=== PATIENT | male | born 1960 | race African-American/Black ===

== ENCOUNTER 2025-07-07 17:08 | Outpatient (CLI) | payer MEDICARE, MEDICAID, SELFPAY ==
[2025-07-07 17:08] LABS: Coronavirus 19, PCR Not Detected (NotDetected); Influenza A, PCR Not Detected (NotDetected); Influenza B, PCR Not Detected (NotDetected)
== END 2025-07-07 23:59 | disposition home or self-care (01) ==
LOC: LAB.DROPOF 17:08
PROVIDERS: Visit Provider Student in an Organized Health Care Education/Training Program
DX: R50.9 Fever, unspecified (principal)
CPT/HCPCS: 87636

== ENCOUNTER 2025-08-05 07:23 | Emergency (ER) | payer MEDICAID, SELFPAY ==
[2025-08-05 07:28] VITALS: BP 152/91; PULSE 68; RESP 18; TEMP 36.6; O2SAT 97; BMI 29.2
--- NOTE | 2025-08-05 07:29 | HMH.EDGENADL ---
Discharge Plan Disposition Patient Disposition: Home, Self-Care Condition: Good Prescriptions Prescriptions: No Action ibuprofen 800 mg tablet PO citalopram 20 mg tablet PO amlodipine 10 mg tablet PO gemfibrozil 600 mg tablet PO omeprazole 20 mg capsule,delayed release(DR/EC) PO ergocalciferol (vitamin D2) 1,250 mcg (50,000 unit) capsule 1,250 mcg PO epinephrine 0.3 mg/0.3 mL auto-injector 0.3 mg IM diazepam 5 mg tablet PO cyclobenzaprine 5 mg tablet PO levocetirizine 5 mg tablet PO naloxone 4 mg/actuation spray,non-aerosol intranasal benzonatate 100 mg capsule 100 mg PO BID PRN (Reason: cough) Qty: 30 0RF ondansetron 4 mg tablet,disintegrating 4 mg PO Q8H PRN (Reason: nausea and vomiting) Qty: 10 0RF Referrals Follow up/Referrals: Provider,Referral, MD [Referring, Medical] - See instructions Activity Restrictions/Add. Instructions Additional Instructions/Restrictions: Please follow up with your primary care provider in 2-3 days. Return if you have numbness weakness tingling worsening pain despite medicines at home. Please return to ED if your symptoms worsen, change in location, change in severity, new symptoms develop or if you become concerned for your health. Clinical Impressions Clinical Impression: Fall, Acute exacerbation of chronic low back pain, CHI (closed head injury) Print Language Print Language: Czech Discharge ED Provider: Jenaro Callejas Adult HPI General Chief complaint: Fall Stated complaint: Fall Time Seen by Provider: 08/05/25 07:29 History of Present Illness HPI narrative: Patient is a 64-year-old male with history of hypertension, chronic back pain. He presents today due to concerns after a fall. It sounds like a mechanical fall. He reports that he tripped in a pothole in his driveway and fell backwards striking the back of his head. He reports possible loss of consciousness. Denies any blood thinners. He was able to get up and ambulate afterwards. However he reports pain mildly in the posterior aspect of his head as well as his neck and lumbar spine. He has not taken any medicines at home for the pain. He reports that his back pain is chronic and he has chronic numbness in his right lower extremity. Denies any saddle anesthesia or urinary incontinence. Denies any other numbness tingling or weakness. Denies any chest pain shortness of breath abdominal pain vomiting or diarrhea. Denies any vision changes Related Data Home Medications ?Medication ?Instructions ?Recorded ?Confirmed amlodipine 10 mg tablet mg PO 07/07/25 07/07/25 citalopram 20 mg tablet mg PO 07/07/25 07/07/25 cyclobenzaprine 5 mg tablet mg PO 07/07/25 07/07/25 diazepam 5 mg tablet mg PO 07/07/25 07/07/25 epinephrine 0.3 mg/0.3 mL 0.3 mg IM 07/07/25 07/07/25 injection, auto-injector ergocalciferol (vitamin D2) 1,250 1,250 mcg PO 07/07/25 07/07/25 mcg (50,000 unit) capsule gemfibrozil 600 mg tablet mg PO 07/07/25 07/07/25 ibuprofen 800 mg tablet mg PO 07/07/25 07/07/25 levocetirizine 5 mg tablet mg PO 07/07/25 07/07/25 naloxone 4 mg/actuation nasal spray intranasal 07/07/25 07/07/25 omeprazole 20 mg capsule,delayed mg PO 07/07/25 07/07/25 release Previous Rx's ?Medication ?Instructions ?Recorded benzonatate 100 mg capsule 100 mg PO BID PRN cough #30 caps 07/07/25 ondansetron 4 mg disintegrating 4 mg PO Q8H PRN nausea and 07/07/25 tablet vomiting #10 tabs Allergies Allergy/AdvReac Type Severity Reaction Status Date / Time aspirin Allergy Unknown Rash Verified 07/07/25 09:01 asprin Allergy Mild Rash Uncoded 07/07/25 08:50 [facility] Disclaimer: The information contained in this section may have been updated after the patient was seen, as this information can be updated by other users. Social History (Updated 07/07/25 @ 08:53 by JOANN Pichardo) Smoking Status: Current every day smoker alcohol intake: never current occupational status: retired Travel in the last 8 weeks?: None Have you lived/traveled outside US in past 30 days?: No Contact w/someone who lives/traveled outside US past 30 days?: No Exposure to someone with infectious disease in past 14 days?: No Do you have a fever (greater than 100.4 F or 38 C)?: No Have you tested positive for COVID-19?: No Exposed to someone with COVID-19 in past 14 days?: No Do you have a sore throat?: No Do you have a cough?: No Do you have any weakness?: No Do you have any diarrhea?: No Are you experiencing any unusual bleeding?: No Do you have any muscle aches/pain?: No Do you have any abdominal pain?: No Are you experiencing loss of taste or smell?: No ROS Obtained: Yes All systems reviewed & no additional complaints except as documented Physical Exam General General appearance: alert and in no apparent distress Head Head exam: atraumatic and normocephalic Eye Eye exam: Present PERRL and EOMI ENT ENT exam: Present normal oropharynx Neck Neck exam: Present full ROM, trachea midline and tenderness (Moderate paraspinal cervical tenderness) Chest Chest inspection: Present symmetric chest wall rise; Absent tenderness Respiratory Respiratory exam: Present normal lung sounds bilaterally; Absent respiratory distress or stridor Cardiovascular Cardiovascular exam: Present regular rate and normal rhythm Abdominal Exam Abdominal exam: Present soft; Absent distention or tenderness Extremities Exam Extremities exam: Present full ROM and tenderness (Tender to palpation over the midline lumbar spine and right hip and right great toe. No obvious deformities. Is reporting some sensory changes in the right lower extremity in a nontender dermatomal distribution, but has full strength.) Neurological Exam Neurological exam: Present alert, oriented X3 and CN II-XII intact Psychiatric Psychiatric exam: Present normal mood Skin Skin exam: Present warm and dry Medical Decision Making Medical Records Screening: Per USPSTF and CDC recommendations, given the prevalence of disease in our region, it is our hospital?s policy to screen for HIV and viral Hepatitis for all patients aged 18 and over and those with ongoing risk factors. Cristofer Inquiry Pt receiving controlled substance: No Vital Signs: 08/05/25 07:28 Temperature 97.9 F Temperature Source Temporal Artery Scan Pulse Rate [Right] 68 Respiratory Rate 18 Blood Pressure [Right Arm] 152/91 H Blood Pressure Mean [Right Arm] 111 Blood Pressure Source [Right Arm] Automatic Cuff Blood Pressure Position [Right Arm] Sitting 02 Sat by Pulse Oximetry 97 Oxygen Delivery Method Room Air Orders (Tests/Meds): ED MEDICATIONS Discontinued Medications Generic Name Dose Route Start Last Admin Trade Name Freq PRN Reason Stop Dose Admin Acetaminophen 1,000 mg 08/05/25 07:39 08/05/25 07:45 Acetaminophen 500mg Tab PO 08/05/25 07:40 1,000 mg ONCE ONE Administration Ketorolac Tromethamine 15 mg 08/05/25 07:39 08/05/25 07:46 Ketorolac 15mg/Ml Vial IM 08/05/25 07:40 15 mg ONCE ONE Administration ORDERS Category Date Time Status CT cervical spine wo con Stat Cat Scan 08/05/25 07:[address] head/brain wo con Stat Cat Scan 08/05/25 07:[address] lumbar spine wo con Stat Cat Scan 08/05/25 07:[address] thoracic spine wo con Stat Cat Scan 08/05/25 07:39 Completed XR chest portable Stat Exams 08/05/25 07:39 Completed XR foot RT min 3V Stat Exams 08/05/25 07:43 Completed XR hip RT 2-3V w/pelvis Stat Exams 08/05/25 07:39 Completed Medical Decision Narrative: Patient is a 64-year-old male who is presenting today after mechanical fall. He tripped in a pothole. Positive LOC, negative blood thinners. On arrival, he is afebrile hemodynamically stable no acute distress. On exam warm and well-perfused. Airway intact, bilateral breath sounds and full pulses in all extremities. No obvious deformity along the calvarium. He does have some mild paraspinal cervical tenderness as well as midline lower thoracic and lumbar tenderness. He has some tenderness over the right hip and right great toe. He is neurovascularly intact. He does have some chronic sensory changes in his right lower extremity secondary to his chronic back pain. No saddle anesthesia urine incontinence or other red flags for cauda equina at this time. Considered MRI, but deferred given absence of red flag symptoms. And patient was ambulatory. Multimodal pain control. Will obtain cross-sectional imaging of the head and spine to rule out fracture or dislocation or ICH. Plain films throughout fracture dislocation. Negative secondary trauma survey otherwise. I independently interpreted the CT head to demonstrate no acute intracranial abnormality. Rest of cross-sectional imaging is unrevealing for fracture dislocation. There is moderate to high-grade stenosis in the lumbar spine, however after patient's Toradol and Tylenol, he is up walking around the emergency department, attempting to leave multiple times. He reports that he feels totally normal. Given this and his improvement in pain, will be discharged with PCP follow-up. My clinical impression was discussed with the patient and all questions were answered. Return precautions were given, with verbalization of understanding and agreement of this plan. Any pending results are to be followed up online. Critical Care Critical Care Time Critical Care Time: No
--- NOTE | 2025-08-05 07:39 | XR_ITS ---
FINAL REPORT CLINICAL HISTORY: .fall FINDINGS: RIGHT HIP 3 views of the right hip demonstrate no acute fracture or dislocation. The joint spaces appear normal. The visualized bony structures are well aligned. No soft tissue abnormality is seen. IMPRESSION: No acute bony abnormality. Reviewed, Interpreted and Dictated by Rod Reddy MD Transcribed by Kaela Ruiz Authenticated and [facility]
--- NOTE | 2025-08-05 07:39 | CT_ITS ---
FINAL REPORT TECHNIQUE: Axial images were obtained of the cervical spine by computed tomography. Coronal and sagittal reconstruction process performed. This study was performed with techniques to keep radiation doses as low as reasonably achievable (ALARA). Individualized dose reduction techniques using automated exposure control or adjustment of mA and/or kV according to the patient's size were employed. CLINICAL HISTORY: fall COMPARISON: None FINDINGS: CT CERVICAL SPINE: There is moderate disc space narrowing of the C3-4, C4-5, C5-6, and C6-7 discs. There is reversal of the normal cervical lordosis. The facets are properly aligned. Multilevel neuroforaminal narrowing is present, particularly at the left C3-4, bilaterally at C4-5, with mild bilateral narrowing at the C5-6 and C6-7 levels as well. No acute bony abnormality is identified. There is streak artifact on multiple images secondary to metallic chains around the patient's neck. IMPRESSION: Degenerative change of the cervical spine, without acute osseous abnormality identified. Reviewed, Interpreted and Dictated by Rod Reddy MD Transcribed by Alissa Lu Authenticated and . [facility]
--- NOTE | 2025-08-05 07:39 | CT_ITS ---
FINAL REPORT TECHNIQUE: Axial images were obtained of the thoracic spine by computed tomography. Coronal and sagittal reconstruction process performed. This study was performed with techniques to keep radiation doses as low as reasonably achievable (ALARA). Individualized dose reduction techniques using automated exposure control or adjustment of mA and/or kV according to the patient's size were employed. CLINICAL HISTORY: fall FINDINGS: Thoracic vertebrae show normal height. Disc spaces are well-preserved. There are moderate anterior osteophytes with mid and lower thoracic spine degenerative disc disease. There is no malalignment. The facets are properly aligned. Moderate changes of centrilobular emphysema are noted. IMPRESSION: No fracture. Reviewed, Interpreted and Dictated by Rod Reddy MD Transcribed by Kaeal Ruiz Authenticated and [facility]
--- NOTE | 2025-08-05 07:39 | XR_ITS ---
FINAL REPORT TECHNIQUE: Single view chest CLINICAL HISTORY: .fall, cough FINDINGS: A single view of the chest was obtained. The heart and mediastinum are within normal limits. The lungs are clear. There is no pneumothorax. IMPRESSION: No acute cardiopulmonary process. Reviewed, Interpreted and Dictated by Rod Reddy MD Transcribed by Kaela Ruiz Authenticated and [facility] [place]
--- NOTE | 2025-08-05 07:39 | CT_ITS ---
FINAL REPORT TECHNIQUE: Axial CT images were performed through the head. Coronal and sagittal reformatted images were submitted. This study was performed with techniques to keep radiation doses as low as reasonably achievable (ALARA). Individualized dose reduction techniques using automated exposure control or adjustment of mA and/or kV according to the patient's size were employed. CLINICAL HISTORY: fall COMPARISON: None FINDINGS: CT HEAD: The head is positioned asymmetrically in the gantry. The ventricles are normal in size. There is no evidence of hemorrhage. There is no mass or edema identified. There are mild physiologic calcifications noted in the basal ganglia. There is no abnormal extra-axial fluid seen. Mild mucoperiosteal thickening is present in the ethmoid air cells. IMPRESSION: No acute intracranial process. Mild mucoperiosteal thickening is present in the ethmoid air cells. Reviewed, Interpreted and Dictated by Rod Reddy MD Transcribed by Alissa Lu Authenticated and [facility]
--- NOTE | 2025-08-05 07:39 | CT_ITS ---
FINAL REPORT TECHNIQUE: Axial imaging of the lumbar spine was obtained without contrast. Reformatted images were also obtained and reviewed.This study was performed with techniques to keep radiation doses as low as reasonably achievable, (ALARA). Individualized dose reduction techniques using automated exposure control or adjustment of mA and/or kV according to the patient's size were employed. CLINICAL HISTORY: fall FINDINGS: There is no acute fracture. There is vacuum disc phenomenon from L2-3 through L4-5. Irregularity is seen at the endplates at L2-3 through L5-S1 levels. There is loss of the normal lumbar lordosis. There is no malalignment. Facets are properly aligned. Prevertebral soft tissues unremarkable. L1-2: Unremarkable. L2-3: Moderate diffuse disc bulge with endplate hypertrophy. High-grade right and moderate left neuroforaminal narrowing. L3-4: Moderate diffuse disc bulge with moderate central canal stenosis and neuroforaminal narrowing. L4-5: Moderate diffuse disc bulge with left paracentral disc protrusion. Moderate left lateral recess stenosis. L5-S1: Moderate diffuse disc bulge with endplate hypertrophy. There is moderate to high-grade bilateral neuroforaminal narrowing. IMPRESSION: No acute bony abnormality. Left lateral recess stenosis at L4-5 with moderate to high-grade bilateral neuroforaminal narrowing. Reviewed, Interpreted and Dictated by Rod Reddy MD Transcribed by Kaela Ruiz Authenticated and [facility]
--- NOTE | 2025-08-05 07:43 | XR_ITS ---
FINAL REPORT CLINICAL HISTORY: .fall FINDINGS: RIGHT FOOT 3 views of the right foot were obtained. There is no acute fracture or dislocation. There is a plantar calcaneal spur. Visualized joint spaces are normally aligned. Soft tissues are unremarkable. IMPRESSION: No acute bony abnormality. Reviewed, Interpreted and Dictated by Rod Reddy MD Transcribed by Kaela Ruiz Authenticated and [facility]
[2025-08-05] MEDS: ACETAMINOPHEN 500MG TAB 1000 MG PO (07:45)
[2025-08-05] MEDS: KETOROLAC 15MG/ML VIAL 15 MG IM (07:46)
--- NOTE | 2025-08-05 07:52 | PC.NURSE ---
Pt to ct via stretcher
--- NOTE | 2025-08-05 08:18 | PC.NURSE ---
pt returns from ct
--- NOTE | 2025-08-05 09:30 | PC.NURSE ---
0915 Pt noted to be ambulating through department and had removed c-collar. Pt states his pcp was able to see him earlier, and was requesting to leave ER to go to PCP appointment and return to ER for discharge. Education was provided to patient by Júnior MILLER that imaging is still pending at this time and will need to wait for discharge. Pt requesting to ambulate throughout hallways. Staff advises patient he will need to return to room to wait for results to preserve other patient's privacy.
--- NOTE | 2025-08-05 09:36 | PC.NURSE ---
Pt attempts to enter nurses station and asks if his sister has been called to have her on the way for discharge. Pt advised that multiple patients have checked, and we have not been able to notify her at this time. Pt noted to have cell phone, and asks if patient can call his sister.
[2025-08-05 09:41] VITALS: BP 154/62; PULSE 80; RESP 20; TEMP 37.1; O2SAT 97
== END 2025-08-05 09:45 | disposition home or self-care (01) ==
PROVIDERS: Emergency Provider Emergency Medicine; PCP Family Medicine
DX: S09.90XA Unspecified injury of head, initial encounter (principal); M54.2 Cervicalgia; M54.59 Other low back pain; G89.29 Other chronic pain; W01.10XA Fall on same level from slipping, tripping and stumbling with subsequent striking against unspecified object, initial encounter
CPT/HCPCS: 70450; 71045; 72125; 72128; 72131; 73502; 73630; 96372; 99285; J1885

== ENCOUNTER 2025-08-09 12:26 | Emergency (ER) | payer MEDICAID, SELFPAY ==
[2025-08-09 12:26] VITALS: BP 146/72; PULSE 88; RESP 18; TEMP 36.6; O2SAT 100; BMI 29.2
[2025-08-09 12:30] VITALS: BP 121/60; PULSE 71; O2SAT 99
--- NOTE | 2025-08-09 12:43 | CT_ITS ---
PROCEDURE INFORMATION: Exam: CT Cervical Spine Without Contrast Exam date and time: 08/09/2025 1:20 PM Age: 64 years old Clinical indication: Injury or trauma; Fall; Blunt trauma TECHNIQUE: Imaging protocol: Computed tomography of the cervical spine without contrast. Radiation optimization: All CT scans at this facility use at least one of these dose optimization techniques: automated exposure control; mA and/or kV adjustment per patient size (includes targeted exams where dose is matched to clinical indication); or iterative reconstruction. COMPARISON: CT CERVICAL SPINE WO CON 08/05/2025 7:59 AM FINDINGS: Bones: Vertebral alignment is maintained. There is preservation of vertebral body heights. Facet joints are aligned. Odontoid process is intact. Atlantoaxial interval maintained. No acute fracture. Uncovertebral and facet arthropathy result in varying degrees of neural foraminal narrowing at multiple levels. Lungs: Lung apices are normal. Soft tissues: Prevertebral and paravertebral soft tissues are maintained IMPRESSION: No acute fracture. No traumatic subluxation.
--- NOTE | 2025-08-09 12:43 | CT_ITS ---
PROCEDURE INFORMATION: Exam: CT Lumbar Spine Without Contrast Exam date and time: 08/09/2025 1:22 PM Age: 64 years old Clinical indication: Injury or trauma; Fall; Blunt trauma (contusions or hematomas) TECHNIQUE: Imaging protocol: Computed tomography of the lumbar spine without contrast. Radiation optimization: All CT scans at this facility use at least one of these dose optimization techniques: automated exposure control; mA and/or kV adjustment per patient size (includes targeted exams where dose is matched to clinical indication); or iterative reconstruction. COMPARISON: CT LUMBAR SPINE WO CON 08/05/2025 8:05 AM FINDINGS: Bones/joints: There is preservation of vertebral alignment. There is preservation of vertebral body heights. Discogenic changes and disc desiccation at L2-S1 levels. Facet joints are aligned. No acute fracture. Combination of diffuse disc bulge and facet arthropathy contribute to [id number] bilateral neural foramina at L2-S1 levels. There is no osseous encroachment of the spinal canal at any level. There is diffuse sclerosis along the otherwise intact sacroiliac joints Soft tissues: Unremarkable. IMPRESSION: No acute fracture. No traumatic subluxation.
--- NOTE | 2025-08-09 12:43 | CT_ITS ---
PROCEDURE INFORMATION: Exam: CT Head Without Contrast Exam date and time: 08/09/2025 1:18 PM Age: 64 years old Clinical indication: Injury or trauma; Fall; Blunt trauma (contusions or hematomas) TECHNIQUE: Imaging protocol: Computed tomography of the head without contrast. Radiation optimization: All CT scans at this facility use at least one of these dose optimization techniques: automated exposure control; mA and/or kV adjustment per patient size (includes targeted exams where dose is matched to clinical indication); or iterative reconstruction. COMPARISON: CT HEAD/BRAIN WO CON 08/05/2025 7:56 AM FINDINGS: Brain: There is no evidence of acute intracranial hemorrhage, extra-axial collection or locoregional mass effect. There are scattered hypodensities in the periventricular and subcortical white matter. The appearance is nonspecific, but most likely represents chronic small vessel disease in a person of this age Cerebral ventricles: The ventricles, sulci and cisterns are normal in size and configuration for patient's age. No hydrocephalus or midline structure shift Pituitary gland and sella: Sellar/parasellar structures, craniocervical junction and orbits are unremarkable Paranasal sinuses: Visualized sinuses are unremarkable. No fluid levels. Mastoid air cells: Visualized mastoid air cells are well aerated. Bones: No calvarial fracture Soft tissues: Unremarkable. IMPRESSION: No acute intracranial abnormality. No calvarial fracture.
--- NOTE | 2025-08-09 13:07 | ED_ITS ---
<Statement entered by Rehan Hooker MD - 08/09/25 15:42> I was consulted by the MONSE, and we discussed the complexity of the problems being addressed. I approved the treatment and management plan for this patient's care in the emergency department, thus performing a substantive portion of the medical decision making. Rehan Hooker MD, WILLIE, FACEP Discharge Plan Disposition Patient Disposition: Home, Self-Care Condition: Good Prescriptions Prescriptions: No Action ibuprofen 800 mg tablet PO citalopram 20 mg tablet PO amlodipine 10 mg tablet PO gemfibrozil 600 mg tablet PO omeprazole 20 mg capsule,delayed release(DR/EC) PO ergocalciferol (vitamin D2) 1,250 mcg (50,000 unit) capsule 1,250 mcg PO epinephrine 0.3 mg/0.3 mL auto-injector 0.3 mg IM diazepam 5 mg tablet PO cyclobenzaprine 5 mg tablet PO levocetirizine 5 mg tablet PO naloxone 4 mg/actuation spray,non-aerosol intranasal benzonatate 100 mg capsule 100 mg PO BID PRN (Reason: cough) Qty: 30 0RF ondansetron 4 mg tablet,disintegrating 4 mg PO Q8H PRN (Reason: nausea and vomiting) Qty: 10 0RF Referrals Follow up/Referrals: Dewey Yarbrough MD [Primary Care Provider, Family Practice] - See instructions Activity Restrictions/Add. Instructions Additional Instructions/Restrictions: Please return to the emergency department with any worsening signs or symptoms. Please continue to take all your at home medicines as prescribed. Please follow-up with your PCP and other doctors in the upcoming days/weeks Clinical Impressions Clinical Impression: Fall, Acute exacerbation of chronic low back pain Instructions Patient Instructions: DI for Low Back Pain, How to Prevent Falls Print Language Print Language: Uzbek Discharge ED Provider: Rehan Hooker General Adult HPI General Chief complaint: Fall Stated complaint: FALL Time Seen by Provider: 08/09/25 12:42 Mode of Arrival: EMS Source of Information: Patient and EMS Description of Symptoms (Recalled from ER Triage Doc. by RN): PT BROUGHT VIA EMS FOR FALL. PT REPORTS HE WAS GOING FISHING, SLIPPED AND FELL. REPORTS PAIN TO BACK OF HEAD, RAISED AREA NOTED. PT ARRIVES IN C-COLLAR. PT ALERT AND ORIENTED. WAS HERE EARLIER THIS WEEK FOR SIMILAR EPISODE. PT REQUESTING LUNCH History of Present Illness HPI narrative: 64-year-old male presents to the emergency department via EMS for slip and fall, patient states today he was going fishing , patient states that he was fishing earlier this week had a similar fall, patient is alert oriented x 3 GCS 15, states he struck his head, no LOC, planes of neck pain and low back pain, presents with a c-collar, patient denies any other acute symptomatology, denies any upper or lower extremity weakness, denies any urinary bladder or bowel dysfunction saddle anesthesia, no presyncopal or syncopal event, no chest pain no shortness of breath, no abdominal pain no nausea vomiting constipation diarrhea, patient is otherwise medical history consistent with hypertension, GERD, hyperlipidemia. Initial triage vitals are unremarkable. Please note that above description of symptoms, in this electronic medical record under categorization of recalled from ER triage doctor by RN are reflective of an initial nursing assessment, however, is not reflective of my full history and physical exam that was personally taken and clarified. Consequentially, this preceding description of symptoms, which may include the patient's categorized chief complaint in the EMR, do not reflect my personal clinical impression, and the ultimate description of history of present illness and patient stated complaints should be deferred to this section of the note. Unless stated otherwise or congruent with this section of the note, additional signs, symptoms, or incongruence should be interpreted as inaccurate with my clinical impression. Onset (ago): hour(s) Related Data Home Medications ?Medication ?Instructions ?Recorded ?Confirmed amlodipine 10 mg tablet mg PO 07/07/25 07/07/25 citalopram 20 mg tablet mg PO 07/07/25 07/07/25 cyclobenzaprine 5 mg tablet mg PO 07/07/25 07/07/25 diazepam 5 mg tablet mg PO 07/07/25 07/07/25 epinephrine 0.3 mg/0.3 mL 0.3 mg IM 07/07/25 07/07/25 injection, auto-injector ergocalciferol (vitamin D2) 1,250 1,250 mcg PO 5 07/07/25 mcg (50,000 unit) capsule gemfibrozil 600 mg tablet mg PO 07/07/25 07/07/25 ibuprofen 800 mg tablet mg PO 07/07/25 07/07/25 levocetirizine 5 mg tablet mg PO 07/07/25 07/07/25 naloxone 4 mg/actuation nasal spray intranasal 5 07/07/25 omeprazole 20 mg capsule,delayed mg PO 07/07/25 release Previous Rx's ?Medication ?Instructions ?Recorded benzonatate 100 mg capsule 100 mg PO BID PRN cough #30 caps 07/07/25 ondansetron 4 mg disintegrating 4 mg PO Q8H PRN nausea and 07/07/25 tablet vomiting #10 tabs Allergies Allergy/AdvReac Type Severity Reaction Status Date / Time aspirin Allergy Unknown Rash Verified 07/07/25 09:01 [facility] Disclaimer: The information contained in this section may have been updated after the patient was seen, as this information can be updated by other users. Social History (Updated 07/07/25 @ 08:53 by JOANN Pichardo) Smoking Status: Current every day smoker alcohol intake: never current occupational status: retired Travel in the last 8 weeks?: None Have you lived/traveled outside US in past 30 days?: No Contact w/someone who lives/traveled outside US past 30 days?: No Exposure to someone with infectious disease in past 14 days?: No Do you have a fever (greater than 100.4 F or 38 C)?: No Have you tested positive for COVID-19?: No Exposed to someone with COVID-19 in past 14 days?: No Do you have a sore throat?: No Do you have a cough?: No Do you have any weakness?: No Do you have any diarrhea?: No Are you experiencing any unusual bleeding?: No Do you have any muscle aches/pain?: No Do you have any abdominal pain?: No Are you experiencing loss of taste or smell?: No ROS Obtained: Yes All systems reviewed & no additional complaints except as documented Physical Exam General General appearance: alert and in no apparent distress Head Head exam: atraumatic and normocephalic Eye Eye exam: Present PERRL and EOMI ENT ENT exam: Present mucous membranes moist Neck Neck exam: Present normal inspection Chest Chest inspection: Present normal inspection and symmetric chest wall rise Respiratory Respiratory exam: Present normal lung sounds bilaterally; Absent respiratory distress Cardiovascular Cardiovascular exam: Present regular rate and normal rhythm Abdominal Exam Abdominal exam: Present soft; Absent tenderness, guarding, rebound or rigidity Extremities Exam Extremities exam: Present normal inspection Back Exam Back exam: Present normal inspection, full ROM, tenderness and paraspinal tenderness; Absent vertebral tenderness Comment: Mild paraspinal tenderness palpation of the cervical spine, negative paraspinal spinal tenderness palpation to the thoracic spine, negative spinal tenderness of cervical spine, paraspinal tenderness located lower lumbar spine, negative spinal tenderness to the lower lumbar Neurological Exam Neurological exam: Present alert, oriented X3 and other (Patient moves extremities to command, otherwise neurovascular neurologically intact, able to walk unassisted no gross sensation deficit 5 out of 5 strength in the bilateral lower and upper extremity) Psychiatric Psychiatric exam: Present normal affect Skin Skin exam: Present warm and dry Medical Decision Making Medical Records Medical records reviewed: Yes I reviewed the patient's medical records. Screening: Per USPSTF and CDC recommendations, given the prevalence of disease in our region, it is our hospital?s policy to screen for HIV and viral Hepatitis for all patients aged 18 and over and those with ongoing risk factors. Cristofer Inquiry Pt receiving controlled substance: No Vital Signs: 08/09/25 12:26 08/09/25 12:30 08/09/25 13:30 Temperature 97.9 F Temperature Source Oral Pulse Rate 71 78 Pulse Rate [Radial] 88 Respiratory Rate 18 Blood Pressure 121/60 159/93 H Blood Pressure [Left Arm] 146/72 H Blood Pressure Mean [Left Arm] 96 Blood Pressure Source [Left Arm] Automatic Cuff Blood Pressure Position [Left Arm] Sitting 02 Sat by Pulse Oximetry 100 99 100 Oxygen Delivery Method Room Air Room Air Room Air Orders (Tests/Meds): ED MEDICATIONS Generic Name Dose Route Start Last Admin Trade Name Freq PRN Reason Stop Dose Admin Dexamethasone Sodium Phosphate 10 mg 08/09/25 13:00 08/09/25 13:11 Dexamethasone 4mg/Ml 5ml Mdv IV 09/08/25 12:59 10 mg Q6H KATJA Administration Discontinued Medications Generic Name Dose Route Start Last Admin Trade Name Freq PRN Reason Stop Dose Admin Dexamethasone Sodium Phosphate 10 mg 08/09/25 12:45 Dexamethasone 4mg/Ml 5ml Mdv IM 09/08/25 12:44 Q6H KATJA Ketorolac Tromethamine 30 mg 08/09/25 12:43 Ketorolac 30mg/Ml Vial IM 08/09/25 12:44 ONCE ONE Ketorolac Tromethamine 30 mg 08/09/25 13:00 08/09/25 13:11 Ketorolac 30mg/Ml Vial IV 08/09/25 13:01 30 mg ONCE ONE Administration Orphenadrine Citrate 60 mg 08/09/25 12:43 08/09/25 13:11 Orphenadrine Citrate 60mg/2ml Vial IM 08/09/25 12:44 60 mg ONCE ONE Administration ORDERS Category Date Time Status CT cervical spine wo con Stat Cat Scan 08/09/25 12:[address] head/brain wo con Stat Cat Scan 08/09/25 12:[address] lumbar spine wo con Stat Cat Scan 08/09/25 12:43 Completed HIV Combo Stat Lab 08/09/25 12:20 Received Hepatitis C Ab Qual. W/ RFX Stat Lab 08/09/25 12:20 Received Medical Decision Narrative: 64-year-old male presents to the emergency department for slip and fall via EMS, complaining of striking head neck pain lower back pain, differential diagnose include but not limited to, acute lumbar sacral strain, contusion, other soft tissue injury, lumbar spine fracture, cervical spine fracture, cervicalgia, closed head injury, acute SDH, traumatic SAH, among others. I discussed this patient's case with the attending physician Dr. Hooker Patient is requesting steroids and muscle relaxers , patient dates has helped with his pain previously, thus will give 10 mg IV dexamethasone, 30 mg IM Toradol and Norflex 60 mg IM, will also obtain CT head without contrast, CT cervical spine without contrast and CT lumbar spine without contrast for evaluation of characterization. I reviewed the patient's CT head without contrast along the corresponding radiologic report, no acute intracranial abnormality, no calvarial fracture. Reviewed the patient's CT cervical spine without contrast along the corresponding radiologic report, no acute fracture no traumatic subluxation. Thus we will discontinue patient's c-collar. I reviewed the patient's CT lumbar spine without contrast along the corresponding radiologic report, no acute fracture no traumatic subluxation. I discussed these results with the patient at the bedside patient is cleared to be discharged home to self-care, patient ambulates with no assistance, no acute injury, recommend [id number] anti-inflammatory medication as needed for symptomatic relief. Patient voiced understanding and agreement to current treatment plan/discharge plan. Of note, patient at discharge is requesting socks and shoes , will give the patient hospital socks and soft soled shoe for comfort. Critical Care Critical Care Time Critical Care Time: No
[2025-08-09] MEDS: ORPHENADRINE CITRATE 60MG/2ML VIAL 60 MG IM (13:11)
[2025-08-09] MEDS: DEXAMETHASONE 4MG/ML 5ML MDV 10 MG IV (13:11)
[2025-08-09] MEDS: KETOROLAC 30MG/ML VIAL 30 MG IV (13:11)
--- NOTE | 2025-08-09 13:12 | PC.NURSE ---
PT TO CT
--- NOTE | 2025-08-09 13:29 | PC.NURSE ---
PT RETURNED FROM CT
[2025-08-09 13:30] VITALS: BP 159/93; PULSE 78; O2SAT 100
--- NOTE | 2025-08-09 13:46 | PC.NURSE ---
patient came to nurses station requesting his paperwork and stating he wanted to leave. AMA paperwork presented which the patient then refused to sign unless he was provided food to eat. patient provided a sandwich, drink and a bag of chips. patient still refusing to sign AMA paperwork until he is completely done .
[2025-08-09 14:35] VITALS: BP 148/78; PULSE 74; RESP 18; TEMP 36.8; O2SAT 98
[2025-08-09 14:54] LABS: Hepatitis C Ab Qual. W/ RFX REACTIVE (Negative)
== END 2025-08-09 14:36 | disposition home or self-care (01) ==
PROVIDERS: Emergency Provider Student in an Organized Health Care Education/Training Program; PCP Family Medicine
DX: M54.59 Other low back pain (principal); G89.29 Other chronic pain; W01.10XA Fall on same level from slipping, tripping and stumbling with subsequent striking against unspecified object, initial encounter
CPT/HCPCS: 70450; 72125; 72131; 86803; 87389; 87522; 96372; 96374; 96375; 99285; J1100; J1885; J2360

== ENCOUNTER 2025-08-17 09:02 | Emergency (ER) | payer MEDICAID, SELFPAY ==
--- OUTSIDE RECORDS SUMMARY | 2024-06-10 12:57 | XMS_ITS | Continuity of Care Document ---
Author Organization [facility] Address [address] [place] [address] Phone Care Team Providers Care Checker [employer] Name Role Phone Provider, [facility] Unavailable Unavailable Advance Directives Directive Yes / No Effective Date File Name No Information Encounters Encounter Description Practice Location Reason(s) For Visit Diagnoses Date Provider Providers Copied on Encounter [facility], [address] [place] [address] Kelsy Onofre [place], [place], [id number] tel:[phone] [facility] No Information 4 Provider [facility]. [address] [place], [place], [id number] . tel: [phone] [facility], [address] [place] [address] Kelsy Onofre [place], [place], [id number] tel:[phone] [facility] Rebekah No Information 4 [employer]. [address] [place] [address], [address], [place], [address]. tel:[phone] Family History Family Member Type Diagnosis Age At Onset No Information Payers Payer name Insurance type Covered alliance party ID Authorjacoba nicanor(s) [employer] [id number] Social History Type Description Quantity Date Captured Comments Sex Male Smoking Status No Information History Of Present Illness Encounter Date Complaint History Of Prese nt Illness No Information Functional Status Date Functional Assessmen t No Information Instructions Date Instruction Additional Infor mation No Information Assessments Type Assessment Date No Information Patient Care Teams Name Effective Dates (start - stop) Status Members No Information
[2025-08-17 09:22] VITALS: BP 157/103; O2SAT 99
[2025-08-17 09:29] VITALS: BP 147/90; PULSE 96; O2SAT 98
[2025-08-17 09:30] VITALS: BP 153/101; PULSE 99; RESP 20; TEMP 36.9; O2SAT 99; BMI 26.1
[2025-08-17] MEDS: KETOROLAC 15MG/ML VIAL 15 MG IM (09:51)
--- NOTE | 2025-08-17 09:57 | HMH.EDGENADL ---
Discharge Plan Disposition Patient Disposition: Home, Self-Care Prescriptions Prescriptions: No Action ibuprofen 800 mg tablet PO citalopram 20 mg tablet PO amlodipine 10 mg tablet PO gemfibrozil 600 mg tablet PO omeprazole 20 mg capsule,delayed release(DR/EC) PO ergocalciferol (vitamin D2) 1,250 mcg (50,000 unit) capsule 1,250 mcg PO epinephrine 0.3 mg/0.3 mL auto-injector 0.3 mg IM diazepam 5 mg tablet PO cyclobenzaprine 5 mg tablet PO levocetirizine 5 mg tablet PO naloxone 4 mg/actuation spray,non-aerosol intranasal benzonatate 100 mg capsule 100 mg PO BID PRN (Reason: cough) Qty: 30 0RF ondansetron 4 mg tablet,disintegrating 4 mg PO Q8H PRN (Reason: nausea and vomiting) Qty: 10 0RF Referrals Follow up/Referrals: Dewey Yarbrough MD [Primary Care Provider, Family Practice] - See instructions Clinical Impressions Clinical Impression: Acute exacerbation of chronic low back pain Instructions Patient Instructions: DI for Low Back Pain Print Language Print Language: Korean Discharge ED Provider: Placido Perera General Adult HPI General Chief complaint: Psychiatric Symptoms Stated complaint: AO 08/17, mental eval. Time Seen by Provider: 08/17/25 09:47 Mode of Arrival: Ambulatory Source of Information: Patient Description of Symptoms (Recalled from ER Triage Doc. by RN): pt is delusional. religiously preoccupied. has had multiple trips to the ER. states he would like us to take a pint of blood and give it to his son. he is oriented but his thought process is not in line. flight of ideas, rapid speech. History of Present Illness HPI narrative: He denies suicidal or homocidal ideation. he does have flight of ideas on my exam. He states that he has had a runny nose and throat pain. He requests steroids, toradol, and cough medicine. Related Data Home Medications ?Medication ?Instructions ?Recorded ?Confirmed amlodipine 10 mg tablet mg PO 07/07/25 07/07/25 citalopram 20 mg tablet mg PO 07/07/25 07/07/25 cyclobenzaprine 5 mg tablet mg PO 07/07/25 07/07/25 diazepam 5 mg tablet mg PO 07/07/25 07/07/25 epinephrine 0.3 mg/0.3 mL 0.3 mg IM 07/07/25 07/07/25 injection, auto-injector ergocalciferol (vitamin D2) 1,250 1,250 mcg PO 07/07/25 07/07/25 mcg (50,000 unit) capsule gemfibrozil 600 mg tablet mg PO 07/07/25 07/07/25 ibuprofen 800 mg tablet mg PO 07/07/25 07/07/25 levocetirizine 5 mg tablet mg PO 07/07/25 07/07/25 naloxone 4 mg/actuation nasal spray intranasal 07/07/25 07/07/25 omeprazole 20 mg capsule,delayed mg PO 07/07/25 07/07/25 release Previous Rx's ?Medication ?Instructions ?Recorded benzonatate 100 mg capsule 100 mg PO BID PRN cough #30 caps 07/07/25 ondansetron 4 mg disintegrating 4 mg PO Q8H PRN nausea and 07/07/25 tablet vomiting #10 tabs Allergies Allergy/AdvReac Type Severity Reaction Status Date / Time aspirin Allergy Unknown Rash Verified 07/07/25 09:01 [facility] Disclaimer: The information contained in this section may have been updated after the patient was seen, as this information can be updated by other users. Social History (Updated 07/07/25 @ 08:53 by JOANN Pichardo) Smoking Status: Never smoker alcohol intake: never current occupational status: retired Travel in the last 8 weeks?: None Have you lived/traveled outside US in past 30 days?: No Contact w/someone who lives/traveled outside US past 30 days?: No Exposure to someone with infectious disease in past 14 days?: No Do you have a fever (greater than 100.4 F or 38 C)?: No Have you tested positive for COVID-19?: No Exposed to someone with COVID-19 in past 14 days?: No Do you have a sore throat?: No Do you have a cough?: No Do you have any weakness?: No Do you have any diarrhea?: No Are you experiencing any unusual bleeding?: No Do you have any muscle aches/pain?: No Do you have any abdominal pain?: No Are you experiencing loss of taste or smell?: No ROS Obtained: Yes Systems reviewed as appropriate & no additional complaints except as documented Physical Exam General General appearance: alert Head Head exam: atraumatic Eye Eye exam: Present normal appearance ENT ENT exam: Present normal exam Neck Neck exam: Present normal inspection Chest Chest inspection: Present normal inspection Respiratory Respiratory exam: Present other (in no respiratory distress ) Cardiovascular Cardiovascular exam: Present regular rate Abdominal Exam Abdominal exam: Present soft Extremities Exam Extremities exam: Present normal inspection Neurological Exam Neurological exam: Present alert and oriented X3 Psychiatric Psychiatric exam: Present other (denies homicidal or suicidal ideation, has oriental orthodox pre-occupation and flight of ideas ) Skin Skin exam: Present warm Medical Decision Making Medical Records Screening: Per USPSTF and CDC recommendations, given the prevalence of disease in our region, it is our hospital?s policy to screen for HIV and viral Hepatitis for all patients aged 18 and over and those with ongoing risk factors. Cristofer Inquiry Pt receiving controlled substance: No Cristofer was queried for this patient: No Vital Signs: 08/17/25 09:22 08/17/25 09:29 08/17/25 09:30 Temperature 98.5 F Temperature Source Oral Pulse Rate 96 H Pulse Rate [Right] 99 H Respiratory Rate 20 Blood Pressure 157/103 H 147/90 H Blood Pressure [Right Arm] 153/101 H Blood Pressure Mean [Right Arm] 118 02 Sat by Pulse Oximetry 99 98 99 Orders (Tests/Meds): ED MEDICATIONS Discontinued Medications Generic Name Dose Route Start Last Admin Trade Name Freq PRN Reason Stop Dose Admin Ketorolac Tromethamine 15 mg 08/17/25 09:46 08/17/25 09:51 Ketorolac 15mg/Ml Vial IM 08/17/25 09:47 15 mg ONCE ONE Administration ORDERS Category Date Time Status Rapid PCR Covid and Flu A/B Stat Lab 08/17/25 09:46 Ordered Medical Decision Narrative: Patient presents for chronic back pain and runny nose. Did order covid swab and toradol IM for back pain. While he requested steroids and codeine, given patient's pre-existing and evident flight of ideas, this risks worsening psychosis and feel risks outweigh benefits. during his stay in the ED, he tried to show female nursing staff his third arm by pulling his pants down. he did not deonstrate any suicidal or homicidal ideation or reason for hold psychiatrically more than his baseline psychosis. He toelrated oral intake without issue. Called sister who was willing to pick him up at the hospital. Critical Care Critical Care Time Critical Care Time: No
[2025-08-17 10:03] LABS: Coronavirus 19, PCR Not Detected (NotDetected); Influenza A, PCR Not Detected (NotDetected); Influenza B, PCR Not Detected (NotDetected)
--- NOTE | 2025-08-17 10:06 | PC.NURSE ---
called sister to come pick patient up
[2025-08-17 10:22] VITALS: BP 150/85; PULSE 80; RESP 16; TEMP 36.7; O2SAT 99
== END 2025-08-17 10:22 | disposition home or self-care (01) ==
PROVIDERS: Emergency Provider Student in an Organized Health Care Education/Training Program; PCP Family Medicine
DX: F30.9 Manic episode, unspecified (principal); M54.50 Low back pain, unspecified; R09.81 Nasal congestion; G89.29 Other chronic pain
CPT/HCPCS: 87636; 96372; 99283; 99284; J1885